=== PATIENT | male | born 1975 | race Caucasian/White ===

== ENCOUNTER 2023-09-26 14:02 | Outpatient (POV) | payer MEDICAID, SELFPAY ==
[2023-09-26 14:37] VITALS: BP 147/92; PULSE 93; RESP 18; O2SAT 94; BMI 41.7
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
== END 2023-09-26 23:59 | disposition home or self-care (01) ==
PROVIDERS: PCP Family Medicine; Visit Provider Nurse Practitioner Family
DX: M51.16 Intervertebral disc disorders with radiculopathy, lumbar region (principal); G89.4 Chronic pain syndrome; M54.9 Dorsalgia, unspecified; I89.0 Lymphedema, not elsewhere classified
CPT/HCPCS: 99202; G0463

== ENCOUNTER 2024-03-04 09:26 | Day surgery (SDC) | payer MEDICAID, SELFPAY ==
[2024-03-04 09:36] VITALS: BP 141/83; PULSE 100; RESP 16; O2SAT 94; BMI 40.4
[2024-03-04 09:51] VITALS: BP 145/82; PULSE 92; RESP 20; O2SAT 92
[2024-03-04 09:53] VITALS: BP 145/82; PULSE 94; RESP 18; O2SAT 93
--- NOTE | 2024-03-04 10:02 | EXP.PAIN.PRO ---
Procedure Date: 03/04/24 Time: 09:50 Anesthesiologist:: Art Hartley CRNA Complications:: None Pre-procedure Diagnosis:: Degenerative disc lumbar spine multilevels. Lumbar radiculopathy. Lumbar postlaminectomy syndrome. Post-procedure Diagnosis:: Same. Indications for Procedure:: Patient is a very pleasant 48-year-old male who comes our clinic today for intrathecal pain pump interrogation and refill. Patient currently being managed with hydromorphone 1 mg/mL at a rate of 0.15 to 8 mg/day. Patient doing very well with his current settings. Patient not requesting any changes. He is not reporting side effects or complications. He rates his pain 2/10. Patient is awake alert [place] x 3. In no acute distress. Flexion-extension lumbar spine somewhat guarded secondary to pain. Deep tendon reflexes upper and lower extremities normal. Motor strength upper and lower extremities normal. There is no gross sensory deficit. Gait is normal. Procedure Details:: Details of the procedure explained to the patient. The patient taken procedure and placed in the sitting position. The area of the pump was cleansed using chlorhexidine as a cleansing solution. The pump was interrogated. The pump was accessed with ease using a 22-gauge inch and half needle. 7 mL of solution was withdrawn and discarded appropriate. The pump was then filled with 20 cc solution containing hydromorphone 1 mg/mL. Patient tolerated procedure without difficulty. There were no complications. Plan and Disposition:: Patient was discharged without incident.
[2024-03-04 10:04] VITALS: BP 146/82; PULSE 92; RESP 16; O2SAT 98
== END 2024-03-04 10:04 | disposition home or self-care (01) ==
PROVIDERS: PCP Family Medicine; Visit Provider Nurse Anesthetist, Certified Registered
DX: M51.16 Intervertebral disc disorders with radiculopathy, lumbar region (principal); M96.1 Postlaminectomy syndrome, not elsewhere classified
CPT/HCPCS: 95991

== ENCOUNTER → 2024-05-27 13:13 | Day surgery (SDC) | payer MEDICAID, SELFPAY ==
--- NOTE | 2024-05-27 13:56 | P.PCN_ITS ---
Procedure Date: 05/27/24 Time: 13:45 Anesthesiologist:: Luz Maria Joya APRN Complications:: None Pre-procedure Diagnosis:: Degenerative disc disease of lumbar spine with lumbar radiculopathy symptoms, chronic lymphedema, sacroiliitis Post-procedure Diagnosis:: Same Indications for Procedure:: Patient is a pleasant 48-year-old male who presents today for intrathecal refill and reprogram. Today he rates his pain a 6 out of 10. Patient states that he continues to have chronic low back pain however over the last month or 2 he just seems really aggravated. He states it is all around his pump site below and that the right side is worse than the left and it does go into his buttocks and hip area. He describes it as an aching, throbbing sensation that does interfere with his ability perform activities of daily living such as cooking and cleaning. He does state that the pain is constant and is very hard to get positioned in order to be comfortable. He states it is affecting his sleep and his ability to perform activities of daily living such as cooking and cleaning. Patient is currently managed with Dilaudid 1 mg/mL with a daily dose of 0.15 to 8 mg/day. He denies any side effects from this medication. He is also prescribed compounded cream from our office and is requesting refills. Patient does state that he has also been diagnosed with RA and is still having a lot of issues with his lymphedema. He states that he is gained quite a bit of weight with this and that he used to go to a clinic there in [facility] however it has been about 9 months and he does need a new referral. Patient denies any other changes. His David has been reviewed and is appropriate. Physical Exam: General: Alert and oriented x3, no acute distress, pleasant and cooperative Lungs: Respirations even and unlabored, symmetrical chest expansion Eyes: PERRL Musculoskeletal: Flexion and extension of lumbar [spine] somewhat guarded secondary to pain, [antalgic gait noted] point tenderness along bilateral SIs with positive bilateral Tiera's, Jenn's, Gaenslen's, compression and di straction exam Neurological: Speech clear, no gross sensory deficit Procedure Details:: Informed consent was obtained and the risk and benefits of the procedure were explained to the patient. The patient had noninvasive monitoring placed including noninvasive blood pressure cuff and pulse oximeter. Patient's pump was interrogated. The area over the pump was cleansed with chlorhexidine as a cleansing solution. In sterile fashion the pump was accessed with a 22-gauge needle. Approximately 6.5 mls of the pump solution was removed and discarded appropriately. The pump was then refilled with 20 mL's of Dilaudid 1 mg/mL. The needle was withdrawn and a bandage was placed over the puncture site. The infusion rate was reprogrammed and increased to Dilaudid 0.1678 mg/day. The patient tolerated well with no complication. Plan and Disposition:: Patient tolerated his intrathecal refill and increase with no complications and was discharged neurologically intact. I did discuss with the patient that I will refill his compounded cream and also send in a prescription of Flexeril 5 mg 3 times daily as needed with a 3-month supply. I did also discuss with him that I will send in a referral to the lymphedema clinic there in [place] for his chronic issues. Patient did have limited range of motion of his lumbar spine with point tenderness along his bilateral SIs and a positive bilateral Tiera's, Jenn's, Gaenslen's, compression and distraction exam. Patient has had this pain for longer than 3 months and it has progressively worsened over the last 1- 1/2 months. Patient has tried conservative treatment including oral medications, heat and ice, topicals, at home stretching exercise for longer than 12 weeks. Patient will be scheduled for bilateral SI injections under fluoroscopy. We will also give him a appointment date for his next intrathecal refill. We will see the patient back in the clinic at the next intrathecal refill. Patient has been instructed to contact the clinic with any concerns before the next appointment. Dr. Saravia has reviewed this note and agrees with this plan of care. This note was dictated using voice recognition software and make contain errors or omissions. -- It Is medically necessary for this patient to continue to have their intrathecal pump refilled at regular intervals. This patient had an intrathecal pain pump implanted after meeting criteria of chronic intractable pain for greater than 3 months and failing conservative treatments. Patient has committed and been compliant to the treatment plan and all planned follow up care. Since implantation of the intrathecal pain pump, the patient has had decreased pain and been more functional. Oral medications have been reduced including intake of oral opioids. Patient continues to do well with intrathecal therapy with decrease in pain symptoms and increase in functional status. Stopping in trathecal medications can lead to life threatening withdrawal, seizures, cardiac arrest, severe pain, and possible . Pumps that are not refilled at regular intervals can be damages and cause and need for replacement. We continually titrate dose and concentration to optimize pain relief and function. We are limited in concentration for certain drugs to safely deliver medications through the pump and stay within the recommendations from the Polyanalgesic Consensus Committee Guidelines. Depending on dose and concentration these pumps may need to be refilled sooner than 3 months as we titrate. A UDS is needed to verify patient's compliance with our office pain contract. This is ordered based off specific treatments related to chronic pain with the potential to abuse certain medications.
== END | disposition home or self-care (01) ==
PROVIDERS: PCP Family Medicine; Visit Provider Nurse Practitioner Family
DX: M51.16 Intervertebral disc disorders with radiculopathy, lumbar region (principal); M46.1 Sacroiliitis, not elsewhere classified; I89.0 Lymphedema, not elsewhere classified
CPT/HCPCS: 62370; 99212; G0463

== ENCOUNTER 2024-06-10 11:50 | Day surgery (SDC) | payer MEDICAID, SELFPAY ==
[2024-06-10 12:11] VITALS: BP 162/96; PULSE 86; RESP 16; TEMP 37; O2SAT 92; BMI 41.8
[2024-06-10] MEDS: BUPIVACAINE 0.25% 10ML INJ 25 MG IJ (12:20)
[2024-06-10] MEDS: methylPREDNISolone ACETATE 80MG/ML VIAL 80 MG (12:20)
[2024-06-10] MEDS: LIDOCAINE 1% 5ML PF VIAL 5 ML (12:20)
[2024-06-10 12:37] VITALS: BP 154/99; PULSE 94; RESP 18; TEMP 36.9; O2SAT 96
--- NOTE | 2024-06-10 13:07 | P.PCN_ITS ---
Procedure Date: 06/10/24 Time: 12:10 Anesthesiologist:: Art Hartley CRNA Complications:: None Pre-procedure Diagnosis:: Bilateral sacroiliitis Post-procedure Diagnosis:: Same Indications for Procedure:: Patient is a very pleasant 48-year-old male who comes our clinic today for bilateral sacroiliac joint injection of cortisone and local anesthetic. Patient describes low lumbar back pain off the midline bilaterally. Bilateral posterior hip pain. Difficulty transitioning from sitting to standing. He rates his pain 7/10. Procedure Details:: Procedure: Bilateral sacroiliac joint injections under fluoroscopy Informed consent was obtained and the risks and benefits of the procedure were explained to the patient.~ The patient was taken to the procedure room and noninvasive monitors were placed including a noninvasive blood pressure cuff and pulse oximeter.~ The patient was placed prone on the procedure table. Both hips were cleansed using Betadine as a cleansing solution. C-arm fluoroscopy was used to view the right sacroiliac joint.~ The skin and subcutaneous tissues were anesthetized using lidocaine 1.5% and a 25-gauge needle.~ After this, a 22-gauge spinal needle was inserted under fluoroscopic guidance into the inferior aspect of the right sacroiliac joint.~ Omnipaque dye was injected and good spread was seen throughout the joint.~ After this, approximately 5 mL of bupivacaine, 0.25% and Depo-Medrol, 40 mg was incrementally injected into the right sacroiliac joint. We then moved to the left sacroiliac joint.~ The skin and subcutaneous tissues were anesthetized using lidocaine 1.5% and a 25-gauge needle.~ After this, a 22- gauge spinal needle was inserted under fluoroscopic guidance into the inferior aspect of the left sacroiliac joint.~ Omnipaque dye was injected and good spread was seen throughout the joint. After this, approximately 5 mL of bupivacaine, 0.25% and Depo-Medrol, 40 mg was incrementally injected into the left sacroiliac joint.~ The patient tolerated the procedure well with no complications. The patient was observed in the Pain Clinic and then was discharged home neurologically intact. Plan and Disposition:: Patient was discharged without incident.
== END 2024-06-10 12:37 | disposition home or self-care (01) ==
LOC: SC.PAINP 11:50
PROVIDERS: PCP Family Medicine; Visit Provider Nurse Practitioner Family
DX: M46.1 Sacroiliitis, not elsewhere classified (principal)
CPT/HCPCS: 27096; G0260; J1010

== ENCOUNTER 2024-06-25 13:38 | Outpatient (POV) | payer MEDICAID, SELFPAY ==
--- NOTE | 2024-06-25 13:43 | EXP.PAIN.SOA ---
[facility] Disclaimer: The information contained in this section may have been updated after the patient was seen, as this information can be updated by other users. Medical History History of left heart catheterization Stage 2 chronic kidney disease DAVID (obstructive sleep apnea) Rheumatoid arthritis CHF (congestive heart failure) Urinary incontinence HTN (hypertension) Surgical History Hx of appendectomy History of nasal septoplasty Family History Other Unknown family medical history Social History (Updated 06/10/24 @ 12:11 by Martha Upton RN) Smoking Status: Never smoker alcohol intake: never current occupational status: other Travel in the last 8 weeks: None PM Subjective & Objective Subjective Subjective:: Patient is a pleasant 48-year-old male who presents today for follow-up of bilateral SI injections of 06/10/2024. Patient is rating his pain today a 8 out of 10. He denies any new trauma or injury. Patient does state that he had approximately 60 percent improvement following this injection. He states however that it only really lasted while the numbing medication was working. He states that immediately after he went back to his baseline. Patient does have a intrathecal pump and denies any side effects to this or the medication. He just feels like certain spots the pump is not actually reaching to provide additional improvement. At our last visit we did order him a customized back brace to help add support and stabilization. Today he states that he has not officially heard from this company regarding the back brace. He is currently managed with Flexeril 5 mg 3 times a day and was given a 3-month supply recently. He denies any problems or requests for refills at this time. His David has been reviewed and is appropriate. Review of Systems: General: No recent weight changes, no fever, no sleep disturbances Respiratory: No cough, no shortness of air, no recurring pulmonary infections Cardiovascular/peripheral vascular: No chest pain, no palpitations, no edema, no shortness of breath Gastrointestinal: No new onset incontinence, normal bowel movements reported Genitourinary: No new onset incontinence Musculoskeletal: Low back pain Psychiatric: [Normal mood/affect] Neurological: [Denies weakness in extremities], [denies balance issues] Pain at rest (0-10 scale): 8 Objective Objective:: Physical Exam: General: Alert and oriented x3, no acute distress, pleasant and cooperative Lungs: Respirations even and unlabored, symmetrical chest expansion Eyes: PERRL Musculoskeletal: Flexion and extension of lumbar [spine] somewhat guarded secondary to pain, [antalgic gait noted] Neurological: Speech clear, no gross sensory deficit Has patient had previous pain injection?: Yes Percent improvement in pain since last injection: 60% Conservative treatment options previously tried: Home exercise plan Length of treatment: Longer than 12 weeks Meds Home Medications and Allergies Home Medications ?Medication ?Instructions ?Recorded ?Confirmed ?Type cyanocobalamin (vitamin B-12) 1,000 mcg PO DIRECTED SUPPLIMENT 09/26/23 06/25/24 History 1,000 mcg tablet furosemide 40 mg tablet 40 mg PO DAILY Fluid 09/26/23 06/25/24 History levetiracetam 500 mg tablet 250 mg PO BID SEIZURES 09/26/23 06/25/24 History losartan 100 0.5 tab PO DAILY BLOOD PRESSURE 09/26/23 06/25/24 History mg-hydrochlorothiazide 25 mg tablet potassium chloride 20 mEq 20 meq PO DAILY SUPPLIMENT 09/26/23 06/25/24 History tablet,extended release spironolactone 50 mg tablet 50 mg PO DIRECTED Fluid 09/26/23 06/25/24 History cyclobenzaprine 5 mg tablet 5 mg PO TID PRN muscle spasm #90 05/27/24 06/25/24 Rx tabs New Prescriptions to Start Prescriptions: Allergies Allergy/AdvReac Type Severity Reaction Status Date / Time No Known Allergies Allergy Verified 06/10/24 12:14 Assessment and Plan *Assessment and plan (1) Chronic low back pain: Status: Acute Qualifiers: Back pain laterality: bilateral Sciatica presence: without sciatica Qualified Code(s): M54.50 - Low back pain, unspecified; G89.29 - Other chronic pain Category: Medical Code(s): M54.50 - Low back pain, unspecified; G89.29 - Other chronic pain Plan Due to the patient's continued worsening pain in his low back and no recent imaging I will order x-ray and MRI without contrast of his lumbar spine. I will also get updated details on his referral to the lymphedema clinic and his back brace. Patient will return to clinic in 1 month for reevaluation of symptoms and plan of care. Patient has been instructed to contact the clinic with any concerns before the next appointment. Dr. Saravia has reviewed this note and agrees with this plan of care. This note was dictated using voice recognition software and make contain errors or omissions. All injections are used with Lidocaine, Bupivacaine and Depo Medrol. Occasionally urine drug screen is needed to verify patient's compliance with our office pain contract. This is ordered based off specific treatments related to chronic pain with the potential to abuse certain medications.
[2024-06-25 13:49] VITALS: BP 160/98; PULSE 112; RESP 16; O2SAT 8; BMI 41.8
--- NOTE | 2024-06-25 14:12 | XR_ITS ---
FINAL REPORT CLINICAL HISTORY: lbp COMPARISON: None FINDINGS: AP and lateral views of the lumbar spine were obtained. There is no prior exam for comparison. There is no acute fracture or malalignment. Vertebral body height is preserved. Mild degenerative disc disease is present, with mild narrowing of the L4-5 disc space. No acute paraspinal abnormality. IMPRESSION: Mild degenerative disc disease as described, without acute osseous abnormality. Reviewed, Interpreted and Dictated by Julissa Hernandez MD Transcribed by Tg Buckley Authenticated and [facility]
== END 2024-06-25 23:59 | disposition home or self-care (01) ==
PROVIDERS: PCP Family Medicine; Visit Provider Nurse Practitioner Family
DX: M54.50 Low back pain, unspecified (principal); G89.29 Other chronic pain
CPT/HCPCS: 72100; 99212; G0463

== ENCOUNTER 2024-07-02 08:51 | Outpatient (CLI) | payer MEDICAID, SELFPAY ==
--- NOTE | 2024-07-02 08:54 | MR_ITS ---
FINAL REPORT TECHNIQUE: Multiplanar and multisequence imaging of the lumbar spine was obtained without contrast. CLINICAL HISTORY: LBP FINDINGS: There is normal alignment of the lumbar vertebral bodies. Vertebral body height is preserved. The spinal cord ends at the level of L1. There is normal signal intensity within the substance of the distal spinal cord. There is a small hemangioma in the L3 vertebral body. No acute paraspinal abnormality is identified. L1-2: There is no focal disc herniation, central canal stenosis or neuroforaminal narrowing. L2-3: There is no focal disc herniation, central canal stenosis or neuroforaminal narrowing. L3-4: An annular disc bulge is present with mild left neuroforaminal narrowing. L4-5: An annular disc bulge is present with degenerative endplate changes and facet osteoarthropathy. There is mild bilateral neuroforaminal narrowing. L5-S1: Mild facet osteoarthropathy is identified. IMPRESSION: Mild degenerative disc disease. Reviewed, Interpreted and Dictated by Julissa Hernandez MD Transcribed by Shara Bach Authenticated and . [facility]
== END 2024-07-02 23:59 | disposition home or self-care (01) ==
LOC: RAD 08:52
PROVIDERS: PCP Nurse Practitioner Family; Visit Provider Nurse Practitioner Family
DX: M54.50 Low back pain, unspecified (principal)
CPT/HCPCS: 72148

== ENCOUNTER 2024-07-21 13:19 | Outpatient (POV) | payer MEDICAID, SELFPAY ==
--- NOTE | 2024-07-21 13:24 | A.OFFVIS_ITS ---
[facility] Disclaimer: The information contained in this section may have been updated after the patient was seen, as this information can be updated by other users. Medical History History of left heart catheterization Stage 2 chronic kidney disease DAVID (obstructive sleep apnea) Rheumatoid arthritis CHF (congestive heart failure) Urinary incontinence HTN (hypertension) Surgical History Hx of appendectomy History of nasal septoplasty Family History Other Unknown family medical history Social History (Updated 06/10/24 @ 12:11 by Martha Upton RN) Smoking Status: Never smoker alcohol intake: never current occupational status: other Travel in the last 8 weeks: None PM Subjective & Objective Subjective Subjective:: Patient is a pleasant 48-year-old male who presents today for MRI follow-up and back brace application. Today he rates his pain a Patient does have a intrathecal Dilaudid 1 mg/mL with a daily dose of 0.1678 mg/day. He denies any side effects and feels like current dosage is working well. He is also prescribed Flexeril 5 mg 3 times a day and was recently given a 3-month supply of this medication and compounded cream from our office. At our last visit we were checking on his lymphedema clinic referral. Today he states he has finally heard from them and he is scheduled for a visit with their office tomorrow. His David has been reviewed and is appropriate. Review of Systems: General: No recent weight changes, no fever, no sleep disturbances Respiratory: No cough, no shortness of air, no recurring pulmonary infections Cardiovascular/peripheral vascular: No chest pain, no palpitations, no edema, no shortness of breath Gastrointestinal: No new onset incontinence, normal bowel movements reported Genitourinary: No new onset incontinence Musculoskeletal: Low back pain Psychiatric: [Normal mood/affect] Neurological: [Denies weakness in extremities], [denies balance issues] Pain at rest (0-10 scale): 8 Objective Objective:: Physical Exam: General: Alert and oriented x3, no acute distress, pleasant and cooperative Lungs: Respirations even and unlabored, symmetrical chest expansion Eyes: PERRL Musculoskeletal: Flexion and extension of lumbar [spine] somewhat guarded secondary to pain, [antalgic gait noted] Neurological: Speech clear, no gross sensory deficit Has patient had previous pain injection?: No Conservative treatment options previously tried: Home exercise plan Length of treatment: Longer than 12 weeks Meds Home Medications and Allergies Home Medications ?Medication ?Instructions ?Recorded ?Confirmed ?Type cyanocobalamin (vitamin B-12) 1,000 mcg PO DIRECTED SUPPLIMENT 09/26/23 06/25/24 History 1,000 mcg tablet furosemide 40 mg tablet 40 mg PO DAILY Fluid 09/26/23 06/25/24 History levetiracetam 500 mg tablet 250 mg PO BID SEIZURES 09/26/23 06/25/24 History losartan 100 0.5 tab PO DAILY BLOOD PRESSURE 09/26/23 06/25/24 History mg-hydrochlorothiazide 25 mg tablet potassium chloride 20 mEq 20 meq PO DAILY SUPPLIMENT 09/26/23 06/25/24 History tablet,extended release spironolactone 50 mg tablet 50 mg PO DIRECTED Fluid 09/26/23 06/25/24 History cyclobenzaprine 5 mg tablet 5 mg PO TID PRN muscle spasm #90 05/27/24 06/25/24 Rx tabs New Prescriptions to Start Prescriptions: Allergies Allergy/AdvReac Type Severity Reaction Status Date / Time No Known Allergies Allergy Verified 06/10/24 12:14 Assessment and Plan *Assessment and plan (1) Chronic low back pain: Status: Acute Qualifiers: Back pain laterality: bilateral Sciatica presence: without sciatica Qualified Code(s): M54.50 - Low back pain, unspecified; G89.29 - Other chronic pain Category: Medical Code(s): M54.50 - Low back pain, unspecified; G89.29 - Other chronic pain Plan I did review over with the patient regarding his updated MRI that did show more significant findings at the L4-L5 level. I did discuss with the patient as well that it may be beneficial to do additional adjustment in his pump in future. Patient is getting fitted with an back brace at today's visit and the rep for that company is present. Patient was counseled that we will plan on following up with him after his lymphedema clinic on the for his intrathecal refill and reprogram. Patient agrees with this plan of care. We will see the patient back in the clinic at the next intrathecal refill. Patient has been instructed to contact the clinic with any concerns before the next appointment. Dr. Saravia has reviewed this note and agrees with this plan of care. This note was dictated using voice recognition software and make contain errors or omissions. -- It Is medically necessary for this patient to continue to have their intrathecal pump refilled at regular intervals. This patient had an intrathecal pain pump implanted after meeting criteria of chronic intractable pain for greater than 3 months and failing conservative treatments. Patient has committed and been compliant to the treatment plan and all planned follow up care. Since implantation of the intrathecal pain pump, the patient has had decreased pain and been more functional. Oral medications have been reduced including intake of oral opioids. Patient continues to do well with intrathecal therapy with decrease in pain symptoms and increase in functional status. Stopping intrathecal medications can lead to life threatening withdrawal, seizures, cardiac arrest, severe pain, and possible . Pumps that are not refilled at regular intervals can be damages and cause and need for replacement. We continually titrate dose and concentration to optimize pain relief and function. We are limited in concentration for certain drugs to safely deliver medications through the pump and stay within the recommendations from the Polyanalgesic Consensus Committee Guidelines. Depending on dose and concentration these pumps may need to be refilled sooner than 3 months as we titrate. A UDS is needed to verify patient's compliance with our office pain contract. This is ordered based off specific treatments related to chronic pain with the potential to abuse certain medications.
[2024-07-21 13:32] VITALS: BP 132/94; PULSE 85; RESP 14; O2SAT 96; BMI 42.7
== END 2024-07-21 23:59 | disposition home or self-care (01) ==
LOC: SC.PAIN 13:21
PROVIDERS: PCP Family Medicine; Visit Provider Nurse Practitioner Family
DX: M54.50 Low back pain, unspecified (principal); G89.29 Other chronic pain
CPT/HCPCS: 99212; G0463

== ENCOUNTER 2024-08-05 11:27 | Day surgery (SDC) | payer MEDICAID, SELFPAY ==
[2024-08-05 11:31] VITALS: BP 159/90; PULSE 99; RESP 16; TEMP 36.8; O2SAT 97; BMI 41.4
[2024-08-05 11:40] VITALS: BP 139/88; PULSE 89; RESP 18; O2SAT 96
[2024-08-05 11:44] VITALS: BP 139/88; PULSE 89; RESP 18; O2SAT 96
[2024-08-05 11:57] VITALS: BP 139/89; PULSE 89; RESP 16; O2SAT 95
--- NOTE | 2024-08-05 12:53 | EXP.PAIN.PRO ---
Procedure Date: 08/05/24 Time: 10:00 Anesthesiologist:: Art Hartley CRNA Complications:: None Pre-procedure Diagnosis:: Degenerative disc lumbar spine multilevels. Lumbar radiculopathy. Lumbar postlaminectomy syndrome. Post-procedure Diagnosis:: Same. Indications for Procedure:: Patient is a very pleasant 48-year-old male who comes our clinic today for intrathecal pain pump interrogation and refill. Patient is currently being managed with hydromorphone 1 mg/mL at a rate of 0.1678 mg/day. He is doing very well with his current settings. He is not reporting any side effects or complications. He is not requesting any changes. Patient is awake alert [place] x 3. In no acute distress. Flexion-extension lumbar spine somewhat guarded secondary to pain. Deep tendon reflexes upper and lower extremities normal. Motor strength upper and lower extremities normal. There is no gross sensory deficit. Gait is normal. Procedure Details:: Details of the procedure explained to the patient. The patient taken procedure and placed in the sitting position. The area of the pump was cleaned using chlorhexidine as a cleansing solution. The pump was interrogated. The pump was accessed with ease using a 22-gauge inch and half needle. 7 mL of solution was withdrawn and discarded appropriate. The pump was then filled with 20 cc of solution containing hydromorphone 1 mg/mL. Rate will continue at 0.1678 mg/day. Patient tolerated procedure without difficulty. No complications. Plan and Disposition:: Patient was discharged without incident.
== END 2024-08-05 11:57 | disposition home or self-care (01) ==
LOC: SC.PAIN 11:29
PROVIDERS: Visit Provider Nurse Anesthetist, Certified Registered
DX: M51.16 Intervertebral disc disorders with radiculopathy, lumbar region (principal); M96.1 Postlaminectomy syndrome, not elsewhere classified
CPT/HCPCS: 95991

== ENCOUNTER 2024-10-07 11:54 | Day surgery (SDC) | payer MEDICAID, SELFPAY ==
[2024-10-07 12:03] VITALS: BP 149/97; PULSE 95; RESP 16; TEMP 37.1; O2SAT 97; BMI 40.6
[2024-10-07 12:07] VITALS: BP 153/85; PULSE 100; RESP 18; O2SAT 95
[2024-10-07 12:21] VITALS: BP 140/86; PULSE 88; RESP 16; O2SAT 99
--- NOTE | 2024-10-07 12:22 | EXP.PAIN.PRO ---
Procedure Date: 10/07/24 Time: 12:00 Anesthesiologist:: Art Hartley CRNA Complications:: None Pre-procedure Diagnosis:: Degenerative disc lumbar spine multilevels with lumbar radiculopathy. Right sacroiliitis Post-procedure Diagnosis:: Same Indications for Procedure:: Patient is a pleasant 49-year-old male who comes our clinic today for intrathecal pain pump interrogation refill. Patient currently being managed with hydromorphone 1 mg/mL at a rate of 0.1678 mg/day. He is doing very well with his current settings. He is not reporting side effects or complications. His only complaint is right sacroiliac joint pain. Upon examination he has extreme point tenderness over the right sacroiliac joint. He has positive Tiera's, Gaenslen's, right sacroiliac joint compression test. We discussed in detail right sacroiliac joint injection. He wishes to proceed. Will get this set up for him. Patient is awake alert [place] x 3. No acute distress. Flexion-extension lumbar spine somewhat guarded secondary to pain. Deep tendon reflexes upper lower extremities normal. Motor strength upper lower extremities normal. There is no gross sensory deficit. Gait is normal. Procedure Details:: Details of the procedure explained to the patient. The patient taken procedure in a patient sitting position. The over the pump was cleaned using chlorhexidine as a cleansing solution. The pump was interrogated. The pump was accessed with ease using a 22-gauge inch and half needle. 8 mL solution was withdrawn discarded probably. The pump was then filled 20 cc of solution containing hydromorphone 1 mg/mL. The rate will continue at 0.1678 mg/day. Patient tolerated procedure without difficulty. No complications. Plan and Disposition:: Patient was discharged without incident.
== END 2024-10-07 12:21 | disposition home or self-care (01) ==
LOC: SC.PAIN 11:56
PROVIDERS: Visit Provider Nurse Anesthetist, Certified Registered
DX: M51.16 Intervertebral disc disorders with radiculopathy, lumbar region (principal); M46.1 Sacroiliitis, not elsewhere classified
CPT/HCPCS: 95991; 99212; G0463

== ENCOUNTER 2024-12-12 11:30 | Day surgery (SDC) | payer MEDICAID, SELFPAY ==
--- NOTE | 2024-12-12 11:34 | EXP.PM.HP ---
History of Present Illness *Admission Date: 12/12/24 *Reason for visit:: Intrathecal refill; DDD *History of present illness: Same [facility] Disclaimer: The information contained in this section may have been updated after the patient was seen, as this information can be updated by other users. Medical History History of left heart catheterization Stage 2 chronic kidney disease DAVID (obstructive sleep apnea) Rheumatoid arthritis CHF (congestive heart failure) Urinary incontinence HTN (hypertension) Surgical History Hx of appendectomy History of nasal septoplasty Family History Other Unknown family medical history Social History Smoking Status: Never smoker alcohol intake: never current occupational status: other Travel in the last 8 weeks?: None Have you lived/traveled outside [place] in past 30 days?: No Contact w/someone who lives/traveled outside [place] past 30 days?: No Exposure to someone with infectious disease in past 14 days?: No Do you have a fever (greater than 100.4 F or 38 C)?: No Have you tested positive for COVID-19?: No Exposed to someone with COVID-19 in past 14 days?: No Do you have a sore throat?: No Do you have a cough?: No Do you have any weakness?: No Do you have any diarrhea?: No Are you experiencing any unusual bleeding?: No Do you have any muscle aches/pain?: No Do you have any abdominal pain?: No Are you experiencing loss of taste or smell?: No Other Medical History Have you received the Flu Vaccine for this season: No Have you received the Pneumonia Vaccine: No Review of Systems Review of Systems Review of systems:: pertinent systems reviewed and negative unless documented below Review of systems (narrative): Review of Systems: General: No recent weight changes, no fever, no sleep disturbances Respiratory: No cough, no shortness of air, no recurring pulmonary infections Cardiovascular/peripheral vascular: No chest pain, no palpitations, no edema, no shortness of breath Gastrointestinal: No new onset incontinence, normal bowel movements reported Genitourinary: No new onset incontinence Musculoskeletal: Chronic back pain Psychiatric: [Normal mood/affect] Neurological: [Denies weakness in extremities], [denies balance issues] Meds Home Medications and Allergies Home Medications ?Medication ?Instructions ?Recorded ?Confirmed ?Type cyanocobalamin (vitamin B-12) 1,000 mcg PO DIRECTED SUPPLIMENT 09/26/23 10/07/24 History 1,000 mcg tablet furosemide 40 mg tablet 40 mg PO DAILY Fluid 09/26/23 10/07/24 History levetiracetam 500 mg tablet 250 mg PO BID SEIZURES 09/26/23 10/07/24 History losartan 100 0.5 tab PO DAILY BLOOD PRESSURE 09/26/23 10/07/24 History mg-hydrochlorothiazide 25 mg tablet potassium chloride 20 mEq 20 meq PO DAILY SUPPLIMENT 09/26/23 10/07/24 History tablet,extended release spironolactone 50 mg tablet 50 mg PO DIRECTED Fluid 09/26/23 10/07/24 History cyclobenzaprine 5 mg tablet 5 mg PO TID PRN muscle spasm #90 05/27/24 10/07/24 Rx tabs New Prescriptions to Start Prescriptions: Allergies Allergy/AdvReac Type Severity Reaction Status Date / Time No Known Allergies Allergy Verified 06/10/24 12:14 Exam Constitutional Constitutional: no acute distress *Routine HEENT Exam Head: Present normocephalic and atraumatic Eye: Present PERRL ENT: Present mucous membranes moist *Routine Neck Exam Neck: Present supple *Routine Respiratory Exam Respiratory: Present CTA bilaterally *Routine Cardiovascular Exam Cardiovascular: Present RRR *Routine Abdominal Exam Abdominal: Present soft *Routine Rectal Exam Rectal:: deferred *Routine Genitalia Exam Genitalia:: deferred Routine Back/Spine/Pelvis Exam Back/Spine: Present pain with flexion *Routine Skin Exam Skin: Present intact and warm *Routine Neurological Exam Neurological: Present alert and oriented X3 Routine Psychiatric Exam Psychiatric: Present normal affect and normal thought process Assessment and Plan *Assessment and plan (1) Chronic low back pain: Status: Acute Qualifiers: Back pain laterality: bilateral Sciatica presence: without sciatica Qualified Code(s): M54.50 - Low back pain, unspecified; G89.29 - Other chronic pain Category: Medical Code(s): M54.50 - Low back pain, unspecified; G89.29 - Other chronic pain
--- NOTE | 2024-12-12 11:35 | P.PCN_ITS ---
Procedure Date: 12/12/24 Time: 11:50 Anesthesiologist:: Luz Maria Joya APRN Complications:: None Pre-procedure Diagnosis:: Degenerative disc disease, chronic back pain, sacroiliitis Post-procedure Diagnosis:: Same Indications for Procedure:: Patient is a pleasant 49-year-old male who presents today for intrathecal refill and reprogram. He rates his pain today a 5 out of 10.He is currently managed with Dilaudid 1 mg/mL with a daily dose of 0.1678 mg/day. He denies any side effects. Patient is still complaining of more pain in and around his low back and hip area along the left side. He does state the pain is interfering with his ability perform activities of daily living such as cooking and cleaning. Patient does state that he would like to see about some injections as the pain is just continuing to bother him constantly. Patient does state that the left side is always been the worst side. Patient is still trying to lose weight and feels like if he could get this pain under control he would have much better improvement overall. Patient did just try 4 hours today and states that it really did aggravate her back pain. Patient is complaining more along the left side today. Patient did also have elevated blood pressure. Patient is taking Ozempic. His David has been reviewed and is appropriate. Physical Exam: General: Alert and oriented x3, no acute distress, pleasant and cooperative Lungs: Respirations even and unlabored, symmetrical chest expansion Eyes: PERRL Musculoskeletal: Flexion and extension of lumbar [spine] somewhat guarded secondary to pain, [antalgic gait noted] point tenderness along left SI with positive left Tiera's, Jenn's, Gaenslen's, compression and distraction exam Neurological: Speech clear, no gross sensory deficit Procedure Details:: Informed consent was obtained and the risk and benefits of the procedure were explained to the patient. The patient had noninvasive monitoring placed including noninvasive blood pressure cuff and pulse oximeter. Patient's pump was interrogated. The area over the pump was cleansed with chlorhexidine as a cleansing solution. In sterile fashion the pump was accessed with a 22-gauge needle. Approximately 8.5 mls of the pump solution was removed and discarded appropriately. The pump was then refilled with 20 mL's of Dilaudid 1 mg/mL. The needle was withdrawn and a bandage was placed over the puncture site. The infusion rate was reprogrammed and increased 10% to Dilaudid 0.1848 mg/day. The patient tolerated well with no complication. Plan and Disposition:: Patient tolerated the procedure well with no complications and was discharged neurologically intact. Patient is experiencing worsening pain along his left hip with point tenderness along his left SI and a positive left Tiera's, Jenn's, Gaenslen's, compression and distraction exam. I did discuss with the patient that I do believe he would benefit from a left SI injection. Risk and benefits were discussed with patient and he would like to proceed forward with this plan of care. Patient has tried and failed conservative therapy including oral medication, heat ice, topicals, at home stretching exercise for longer than 12 weeks. Patient is having to adjust his activity due to the pain. Patient has had chronic back pain for longer than 6 months. Patient will be submitted for a left SI injection under fluoroscopy. This will be a diagnostic injection with less than 1 mL of solution to be injected if he does get significant relief he may be a candidate for a future SI fusion. We will follow-up at a later date. Patient will also be given a date for his next intrathecal refill date. We will see the patient back in the clinic at the next intrathecal refill. Patient has been instructed to contact the clinic with any concerns before the next appointment. Dr. Saravia has reviewed this note and agrees with this plan of care. This note was dictated using voice recognition software and make contain errors or omissions. -- It Is medically necessary for this patient to continue to have their intrathecal pump refilled at regular intervals. This patient had an intrathecal pain pump implanted after meeting criteria of chronic intractable pain for greater than 3 months and failing conservative treatments. Patient has committed and been compliant to the treatment plan and all planned follow up care. Since i mplantation of the intrathecal pain pump, the patient has had decreased pain and been more functional. Oral medications have been reduced including intake of oral opioids. Patient continues to do well with intrathecal therapy with decrease in pain symptoms and increase in functional status. Stopping intrathecal medications can lead to life threatening withdrawal, seizures, cardiac arrest, severe pain, and possible . Pumps that are not refilled at regular intervals can be damages and cause and need for replacement. We continually titrate dose and concentration to optimize pain relief and function. We are limited in concentration for certain drugs to safely deliver medications through the pump and stay within the recommendations from the Polyanalgesic Consensus Committee Guidelines. Depending on dose and concentration these pumps may need to be refilled sooner than 3 months as we titrate. A UDS is needed to verify patient's compliance with our office pain contract. This is ordered based off specific treatments related to chronic pain with the potential to abuse certain medications.
[2024-12-12 11:38] VITALS: BP 183/110; PULSE 104; RESP 16; O2SAT 94; BMI 40.4
[2024-12-12 11:47] VITALS: BP 150/102; PULSE 99; RESP 18; O2SAT 94
[2024-12-12 11:57] VITALS: BP 149/101; PULSE 81; RESP 18; O2SAT 96
== END 2024-12-12 11:57 | disposition home or self-care (01) ==
PROVIDERS: Visit Provider Nurse Practitioner Family
DX: Z45.1 Encounter for adjustment and management of infusion pump (principal); G89.29 Other chronic pain; M54.50 Low back pain, unspecified; M46.1 Sacroiliitis, not elsewhere classified; M51.16 Intervertebral disc disorders with radiculopathy, lumbar region; I13.0 Hypertensive heart and chronic kidney disease with heart failure and stage 1 through stage 4 chronic kidney disease, or unspecified chronic kidney disease; I50.9 Heart failure, unspecified; N18.2 Chronic kidney disease, stage 2 (mild); M06.9 Rheumatoid arthritis, unspecified; Z79.899 Other long term (current) drug therapy
CPT/HCPCS: 62370

== ENCOUNTER 2025-02-24 13:32 | Day surgery (SDC) | payer MEDICAID, SELFPAY ==
[2025-02-24 13:43] VITALS: BP 146/88; PULSE 88; RESP 16; O2SAT 98; BMI 39.7
--- NOTE | 2025-02-24 13:58 | EXP.PAIN.PRO ---
Procedure Date: 02/24/25 Time: 13:45 Anesthesiologist:: Rayray Hartley CRNA Complications:: None Pre-procedure Diagnosis:: Left sacroiliitis Post-procedure Diagnosis:: Same Indications for Procedure:: Patient is a very pleasant 49-year-old male who comes our clinic today for a left sacroiliac joint injection of cortisone and local anesthetic. Patient describes left low lumbar back pain as constant, dull, aching. Left posterior hip pain he describes as constant, dull, aching. He reports difficulty transitioning from sitting to standing. He rates his pain 7/10. Procedure Details:: Procedure: Left sacroiliac injection under fluoroscopy Informed consent was obtained and the risk and benefits of the procedure were explained to the patient.~ The patient was taken to the procedure room and noninvasive monitors were placed including noninvasive blood pressure cuff and pulse oximeter.~ The patient was placed prone on the procedure table.~ The~ left hip was cleansed using Betadine as a cleansing solution.~ C-arm fluorosocpy was used to view the left SI joint.~ The skin and subcutaneous tissues were anesthetized using Lidocaine 1.5% and a 25-gauge needle.~ After this, a 22-gauge spinal needle was inserted under fluoroscopic guidance into the inferior aspect of the left SI joint.~ Omnipaque dye was injected and a good spread was seen throughout the joint.~ After this, approximately 5 mL of bupivacaine 0.25% and dexamethasone 10 mg was incrementally injected into the sacroiliac joint.~ The patient tolerated the procedure well with no complications.~ The patient was observed in the Pain Clinic for a period of 30-45 minutes, then discharged home neurologically intact.~ Plan and Disposition:: Patient was discharged without incident.
[2025-02-24 14:02] VITALS: BP 133/85; PULSE 85; RESP 16; O2SAT 92
[2025-02-24] MEDS: BUPIVACAINE 0.25% 10ML INJ 25 MG IJ (14:06)
[2025-02-24 14:07] VITALS: BP 130/78; PULSE 90; RESP 18; O2SAT 93
[2025-02-24] MEDS: LIDOCAINE 1% 5ML PF VIAL 5 ML (14:07)
[2025-02-24] MEDS: DEXAMETHASONE 10MG/ML 1ML VIAL 10 MG (14:07)
[2025-02-24 14:14] VITALS: BP 130/78; PULSE 90; RESP 18; O2SAT 93
== END 2025-02-24 14:02 | disposition home or self-care (01) ==
PROVIDERS: Visit Provider Nurse Anesthetist, Certified Registered
DX: M46.1 Sacroiliitis, not elsewhere classified (principal); I13.0 Hypertensive heart and chronic kidney disease with heart failure and stage 1 through stage 4 chronic kidney disease, or unspecified chronic kidney disease; I50.9 Heart failure, unspecified; N18.9 Chronic kidney disease, unspecified; Z79.899 Other long term (current) drug therapy
CPT/HCPCS: 64450; G0260; J0665; J1100; J2003

== ENCOUNTER 2025-04-21 13:42 | Day surgery (SDC) | payer MEDICAID, SELFPAY ==
[2025-04-21 13:52] VITALS: BP 136/92; PULSE 100; RESP 16; O2SAT 95; BMI 40.4
[2025-04-21 14:17] VITALS: BP 137/82; PULSE 93; RESP 18; O2SAT 96
[2025-04-21] MEDS: LIDOCAINE 1% 5ML PF VIAL 5 ML (14:18)
[2025-04-21] MEDS: BUPIVACAINE 0.25% 10ML INJ 25 MG IJ (14:18)
[2025-04-21 14:19] VITALS: BP 137/82; PULSE 96; RESP 18; O2SAT 96
--- NOTE | 2025-04-21 14:20 | EXP.PAIN.PRO ---
Procedure Date: 04/21/25 Time: 14:00 Anesthesiologist:: Rayray Hartley CRNA Complications:: None Pre-procedure Diagnosis:: Degenerative disc lumbar spine multilevels. Lumbar radiculopathy. Lumbar spondylosis. Multilevel lumbar facet arthropathy. Post-procedure Diagnosis:: Same. Indications for Procedure:: Patient is a very pleasant 49-year-old male who comes to clinic today for round 2 of bilateral lumbar L4-5 and L5-S1 medial branch block/facet injection. Patient describes low lumbar back pain as constant, dull, aching. Patient reports difficulty with lumbar flexion, extension, left and right rotation. He rates his pain 7/10. Procedure Details:: Informed consent was obtained and the risk and benefits of the procedure was explained to the patient. Patient was taken to the procedure room where noninvasive monitors were placed, including noninvasive blood pressure cuff as well as pulse oximeter. The area over the lumbar spine was cleansed using chlorhexidine as a cleansing solution. I anesthetized the skin and subcutaneous tissues with 1% Lidocaine. I placed 22-gauge spinal needles into the facet joint/ medial branches of L4-L5, and L5-S1 bilaterally. Needle placement was confirmed with fluoroscopy. After confirmation of needle placement, each site was injected with 1 mL of 1% lidocaine and 0.25 % Marcaine 1 mL. Patient tolerated the procedure without difficulty. There were no complications. Plan and Disposition:: Patient was discharged without incident.
[2025-04-21 14:24] VITALS: BP 155/93; PULSE 99; RESP 16; O2SAT 94
== END 2025-04-21 14:24 | disposition home or self-care (01) ==
PROVIDERS: Visit Provider Nurse Anesthetist, Certified Registered
DX: M47.26 Other spondylosis with radiculopathy, lumbar region (principal); I13.0 Hypertensive heart and chronic kidney disease with heart failure and stage 1 through stage 4 chronic kidney disease, or unspecified chronic kidney disease; I50.9 Heart failure, unspecified; G47.33 Obstructive sleep apnea (adult) (pediatric); M06.9 Rheumatoid arthritis, unspecified; Z79.899 Other long term (current) drug therapy
CPT/HCPCS: 62323; J0665; J2003